=== PATIENT | male | born 1960 | race Caucasian/White ===

== ENCOUNTER 2018-01-24 15:31 | Inpatient (IN) | payer OTHER ==
[~2018-01-24] VITALS: Ht 188 cm; Wt 131.0 kg
[2018-01-30 06:02] VITALS: BP 112/76
[2018-01-30] MEDS ORDERED: LACTATED RINGERS 1,000 ML IV SCH (06:02)
[2018-01-30] MEDS ORDERED: GABA300C10 PO (06:37)
[2018-01-30] MEDS ORDERED: AMLO1CAP10 PO (06:37)
[2018-01-30] MEDS ORDERED: NORT25CA PO (06:39)
[2018-01-30] MEDS ORDERED: BACITRACIN 50,000 UNIT ONE (06:46)
[2018-01-30] MEDS ORDERED: BUPIVACAINE/PF 0.5% ONE (06:46)
[2018-01-30] MEDS ORDERED: EPINEPHRINE 1 MG/ML, 1ML ONE (06:46)
[2018-01-30] MEDS ORDERED: FENTANYL PF 250 MCG/5ML ONE (07:00)
[2018-01-30] MEDS ORDERED: GABAPENTIN 300 MG CAPSULE PO ONE (07:00)
[2018-01-30] MEDS ORDERED: OXYcodone IR 5MG TABLET PO ONE (07:00)
[2018-01-30] MEDS ORDERED: ACETAMINOPHEN 500 MG TABLET PO ONE (07:00)
[2018-01-30] MEDS ORDERED: CEFAZOLIN 1,000 MG ONE (07:13)
[2018-01-30] MEDS ORDERED: PROPOFOL 10 MG/ML, 20ML ONE (07:13)
[2018-01-30] MEDS ORDERED: DEXAMETHASONE 4 MG/ML, 1ML ONE (07:13)
[2018-01-30] MEDS ORDERED: EPHEDRINE 50 MG/ML, 1ML ONE (07:13)
[2018-01-30] MEDS ORDERED: LACTATED RINGERS 1,000 ML ONE (07:13)
[2018-01-30] MEDS ORDERED: PHENYLEPHRINE 10 MG/ML ONE (07:13)
[2018-01-30] MEDS ORDERED: THROMBIN 5,000 UNIT VIAL TP ONE (07:28)
[2018-01-30] MEDS ORDERED: FENTANYL PF 100 MCG/2ML ONE (08:21)
[2018-01-30] MEDS ORDERED: LABETALOL 5MG/ML, 20ML IV PRN ×2 (08:30→12:30)
[2018-01-30] MEDS ORDERED: OXYcodone 5 MG/5 ML ORAL.SOL UDC PO PRN (08:30)
[2018-01-30] MEDS ORDERED: ONDANSETRON 2MG/ML, 2ML IV PRN ×2 (08:30→12:30)
[2018-01-30] MEDS ORDERED: DIAZEPAM 5 MG/ML, 2ML IVPush PRN (08:30)
[2018-01-30] MEDS ORDERED: HYDROmorphone 2 MG/ML, 1ML IV PRN (08:30)
[2018-01-30] MEDS ORDERED: ALBUTEROL SULFATE 2.5 MG/3 ML NPPB PRN (08:30)
[2018-01-30] MEDS ORDERED: FENTANYL PF 100 MCG/2ML IV PRN (08:30)
[2018-01-30] MEDS ORDERED: hydrALAzine 20 MG/ML, 1ML IV PRN (08:30)
[2018-01-30] MEDS: INSULIN REGULAR 100 UNITS/ML, 3ML VIAL SQ-INSULIN SCH ×3 (11:00→21:00)
[2018-01-30 11:10] VITALS: BP 113/63
[2018-01-30] MEDS ORDERED: MORPHINE SULFATE 4 MG/ML, 1ML ONE (11:39)
[2018-01-30] MEDS ORDERED: ONDANSETRON 2MG/ML, 2ML ONE (11:40)
[2018-01-30] MEDS ORDERED: DIAZEPAM 5 MG TABLET PO PRN (12:30)
[2018-01-30] MEDS ORDERED: CYCLOBENZAPRINE 10 MG TABLET PO PRN (12:30)
[2018-01-30] MEDS ORDERED: PROMETHAZINE 25 MG/ML, 1ML IM PRN (12:30)
[2018-01-30] MEDS ORDERED: morphine SULFATE 10 MG/ML, 1ML IV PRN (12:30)
[2018-01-30] MEDS ORDERED: DIPHENHYDRAMINE 50 MG/ML, 1ML IM PRN (12:30)
[2018-01-30] MEDS ORDERED: DIAZEPAM 5 MG/ML, 2ML IV PRN (12:30)
[2018-01-30] MEDS ORDERED: HYDROcodone/APAP 5/325 TABLET PO PRN (12:30)
[2018-01-30] MEDS ORDERED: DIPHENHYDRAMINE 50 MG CAPSULE PO PRN (12:30)
[2018-01-30] MEDS ORDERED: MAGNESIUM HYDROXIDE 8%, 30ML UDC PO PRN (12:30)
[2018-01-30] MEDS ORDERED: BISACODYL 10 MG SUPP PR PRN (12:30)
[2018-01-30] MEDS: NS + 20MEQ KCL 1,000 ML IV SCH ×2 (13:37→23:18)
[2018-01-30] MEDS: OXYcodone/APAP 5/325MG TABLET PO PRN ×3 (13:45→21:56)
[2018-01-30] MEDS ORDERED: DULAGLUTIDE SQ SCH (14:00)
[2018-01-30] MEDS ORDERED: TRULICITY SQ SCH (14:00)
[2018-01-30 14:01] VITALS: BP 117/69
[2018-01-30] MEDS: CEFAZOLIN PMX 1GM/50ML 50 ML IVPB SCH ×2 (15:18→23:01)
[2018-01-30] MEDS ORDERED: INSULIN REGULAR 100 UNITS/ML, 3ML VIAL SQ-INSULIN SCH (16:00)
[2018-01-30] MEDS ORDERED: metFORMIN 500 MG TABLET PO SCH (16:30)
[2018-01-30] MEDS: NORTRIPTYLINE 25 MG CAPSULE PO SCH (18:06)
[2018-01-30 19:30] VITALS: BP 118/76
[2018-01-30] MEDS ORDERED: BENAZEPRIL 20 MG TABLET PO SCH (21:00)
[2018-01-30] MEDS ORDERED: AMLODIPINE 5 MG TABLET PO SCH (21:00)
[2018-01-30] MEDS: GABAPENTIN 300 MG CAPSULE PO SCH (21:21)
[2018-01-31 00:35] VITALS: BP 117/77
[2018-01-31] MEDS: OXYcodone/APAP 5/325MG TABLET PO PRN ×4 (01:58→14:00)
[2018-01-31 03:52] VITALS: BP 113/75
[2018-01-31] MEDS: NORTRIPTYLINE 25 MG CAPSULE PO SCH (06:06)
[2018-01-31] MEDS: INSULIN REGULAR 100 UNITS/ML, 3ML VIAL SQ-INSULIN SCH ×2 (06:08→11:00)
[2018-01-31] MEDS ORDERED: GLIMEPIRIDE 1 MG TABLET PO SCH ×2 (07:30→08:00)
[2018-01-31 07:55] VITALS: BP 134/83
[2018-01-31] MEDS ORDERED: metFORMIN 500 MG TABLET PO SCH (08:00)
[2018-01-31] MEDS: GABAPENTIN 300 MG CAPSULE PO SCH (08:10)
[2018-01-31] MEDS ORDERED: OXYC-307 PO (08:55)
[2018-01-31] MEDS ORDERED: BENAZEPRIL 20 MG TABLET PO SCH (09:00)
[2018-01-31] MEDS ORDERED: SENNA/DOCUSATE TABLET PO SCH (09:00)
[2018-01-31] MEDS ORDERED: NORTRIPTYLINE 25 MG CAPSULE PO SCH (09:00)
[2018-01-31] MEDS ORDERED: AMLODIPINE 5 MG TABLET PO SCH (09:00)
[2018-01-31 13:11] VITALS: BP 142/85
== END 2018-01-31 14:55 | disposition home or self-care (01) | DRG 473 ==
LOC: UNDOADMIN 15:31 → ORIP 15:31 → 4NOR 01-30 11:09 → DCLOUNGE 01-31 14:49
PROVIDERS: ADMIT Neurological Surgery; ATTEND Neurological Surgery
PROC: 4A11X4G Monitoring of Peripheral Nervous Electrical Activity, Intraoperative, External Approach (ICD-10-PCS; 2018-01-30)
PROC: 0RG20A0 Fusion of 2 or more Cervical Vertebral Joints with Interbody Fusion Device, Anterior Approach, Anterior Column, Open Approach (ICD-10-PCS; principal; 2018-01-30 07:00)
DX: M47.12 Other spondylosis with myelopathy, cervical region (principal); I10 Essential (primary) hypertension; E11.9 Type 2 diabetes mellitus without complications; M54.12 Radiculopathy, cervical region
CPT/HCPCS: 36415; 72040; 82962; 86850; 86900; 95938; 95941; C1713; G0378; J0171; J0690; J1100; J1815; J2405; J2704; J3010; J3480; J3490; J2270; J2370; J7120

== ENCOUNTER → 2018-01-24 | Outpatient (CLI) | payer MEDICAID, OTHER ==
[~2018-01-24] MED LIST: DULA0.75 SQ-INSULIN; FOLI-17 PO; GLIM2TAB2 PO; HYDR-3343 PO; MAGN400T26 PO; METF500T9 PO; METO-99 PO; MULT-6 PO; THIA100T10 PO
[2018-01-24 15:19] LABS: CULTURE INDICATED? YES; MICROSCOPIC INDICATED
[2018-01-24 15:26] LABS: BASOPHILS # (AUTO) 0.03 x10^3/uL (0-0.1); BASOPHILS % (AUTO) 0 % (0-1); EOSINOPHILS # (AUTO) 0.19 x10^3/uL (0-0.4); EOSINOPHILS % (AUTO) 3 % (1-7); LYMPHOCYTES # (AUTO) 2.96 x10^3/uL (1-3.4); LYMPHOCYTES % (AUTO) 45 % (22-44); MD NO; MEAN CORPUSCULAR HEMOGLOBIN 25.6 pg (27.5-34.5); MEAN CORPUSCULAR HGB CONC 32.9 g/dL (33.2-36.2); MEAN CORPUSCULAR VOLUME 77.8 fL (81-97); MEAN PLATELET VOLUME 7.4 fL (7.4-10.4); MONOCYTES # (AUTO) 1.06 x10^3/uL (0.2-0.8); MONOCYTES % (AUTO) 16 % (2-9); NEUTROPHILS # (AUTO) 2.36 x10^3/uL (1.8-6.8); NEUTROPHILS % (AUTO) 36 % (42-75); PLATELET COUNT 297 x10^3/uL (130-400); RED BLOOD COUNT 5.49 x10^6/uL (4.38-5.82); RED CELL DISTRIBUTION WIDTH 14.9 % (9.4-14.8)
[2018-01-24 15:34] LABS: INTERNATIONAL NORMALIZED RATIO 1.03 (0.93-1.1); PROTHROMBIN TIME 10.7 Seconds (9.6-11.5)
[2018-01-24 15:35] LABS: ALANINE AMINOTRANSFERASE 64 U/L (12-78); ALBUMIN 3.8 g/dL (3.4-5.0); ANION GAP 12 mmol/L (5-15); CHLORIDE 102 mmol/L (98-107); CREATININE 1.24 mg/dL (0.7-1.3)
[2018-01-24 15:37] LABS: ALKALINE PHOSPHATASE 71 U/L (45-117); BILIRUBIN,TOTAL 0.3 mg/dL (0.2-1.0); TOTAL PROTEIN 7.3 g/dL (6.4-8.2)
== END | disposition home or self-care (01) ==
LOC: STAR 14:19
PROVIDERS: ATTEND Neurological Surgery
DX: Z01.818 Encounter for other preprocedural examination (principal); M54.12 Radiculopathy, cervical region; R00.0 Tachycardia, unspecified
CPT/HCPCS: 36415; 80053; 81001; 85025; 85610; 85730; 87086; 93005

== ENCOUNTER 2018-02-15 15:55 | Inpatient (IN) | payer OTHER ==
[~2018-02-15] VITALS: Ht 188 cm; Wt 122.9 kg
[~2018-02-15 15:55] MED LIST changes: +AMLO1CAP10 PO; +GABA300C10 PO; +NORT25CA78 PO; +OXYC-307 PO
[2018-02-15 16:37] LABS: BASOPHILS # (AUTO) 0.04 x10^3/uL (0-0.1); BASOPHILS % (AUTO) 1 % (0-1); EOSINOPHILS # (AUTO) 0.25 x10^3/uL (0-0.4); EOSINOPHILS % (AUTO) 3 % (1-7); LYMPHOCYTES # (AUTO) 2.46 x10^3/uL (1-3.4); LYMPHOCYTES % (AUTO) 33 % (22-44); MD NO; MEAN CORPUSCULAR HEMOGLOBIN 25.5 pg (27.5-34.5); MEAN CORPUSCULAR HGB CONC 32.6 g/dL (33.2-36.2); MEAN CORPUSCULAR VOLUME 78.3 fL (81-97); MEAN PLATELET VOLUME 7.2 fL (7.4-10.4); MONOCYTES # (AUTO) 0.95 x10^3/uL (0.2-0.8); MONOCYTES % (AUTO) 13 % (2-9); NEUTROPHILS # (AUTO) 3.73 x10^3/uL (1.8-6.8); NEUTROPHILS % (AUTO) 50 % (42-75); PLATELET COUNT 389 x10^3/uL (130-400); RED BLOOD COUNT 5.77 x10^6/uL (4.38-5.82); RED CELL DISTRIBUTION WIDTH 14.1 % (9.4-14.8)
[2018-02-15 16:43] LABS: ANION GAP 10 mmol/L (5-15); CALCIUM 8.9 mg/dL (8.5-10.1); CHLORIDE 100 mmol/L (98-107); CREATININE 1.07 mg/dL (0.7-1.3)
[2018-02-15 16:44] LABS: ALBUMIN 3.9 g/dL (3.4-5.0)
[2018-02-15 16:47] LABS: TROPONIN I < 0.015 ng/mL (0.000-0.045)
[2018-02-15 17:02] LABS: T4 (THYROXINE) 8.4 mcg/dL (4.5-12.1)
[2018-02-15 17:11] LABS: THYROID STIMULATING HORMONE 2.54 mIU/L (0.358-3.740)
[2018-02-15] MEDS ORDERED: SODIUM CHLORIDE 0.9% 1,000 ML IV ONE ×2 (18:02→18:30)
[2018-02-15] MEDS ORDERED: SODIUM CHLORIDE FLUSH 10ML SYR IVF PRN (18:30)
[2018-02-15] MEDS ORDERED: SODIUM CHLORIDE 0.9% 1,000ML IVBOLUS ONE (18:30)
[2018-02-15] MEDS ORDERED: SODIUM CHLORIDE FLUSH 10ML SYR IVF ONE (19:00)
[2018-02-15] MEDS ORDERED: ACETAMINOPHEN 325 MG TABLET PO PRN (19:30)
[2018-02-15] MEDS ORDERED: ONDANSETRON ODT 4 MG PO PRN (19:30)
[2018-02-15] MEDS ORDERED: POLYETHYLENE GLYCOL 17 GM PACKET PO PRN (19:30)
[2018-02-15] MEDS ORDERED: BISACODYL 10 MG SUPP PR PRN (19:30)
[2018-02-15 19:46] LABS: FREE T4 (FREE THYROXINE) 1.04 ng/dL (0.76-1.46)
[2018-02-15 20:12] LABS: HEMOGLOBIN A1C 9.2 % (4.2-6.3)
[2018-02-15] MEDS: SODIUM CHLORIDE 0.9% 1,000 ML IV SCH (22:06)
[2018-02-15] MEDS: OXYcodone/APAP 10/325MG TABLET PO PRN (22:07)
[2018-02-15] MEDS: GABAPENTIN 300 MG CAPSULE PO SCH (22:07)
[2018-02-15 22:09] VITALS: BP 123/81
[2018-02-16] VITALS (12 sets, daily range): BP systolic 74–149; BP diastolic 58–89
[2018-02-16] MEDS: OXYcodone/APAP 10/325MG TABLET PO PRN ×4 (02:11→20:43)
[2018-02-16 05:16] LABS: BASOPHILS # (AUTO) 0.04 x10^3/uL (0-0.1); BASOPHILS % (AUTO) 1 % (0-1); EOSINOPHILS # (AUTO) 0.36 x10^3/uL (0-0.4); EOSINOPHILS % (AUTO) 5 % (1-7); LYMPHOCYTES # (AUTO) 2.72 x10^3/uL (1-3.4); LYMPHOCYTES % (AUTO) 41 % (22-44); MD NO; MEAN CORPUSCULAR HEMOGLOBIN 26.1 pg (27.5-34.5); MEAN CORPUSCULAR HGB CONC 33.1 g/dL (33.2-36.2); MEAN PLATELET VOLUME 7.5 fL (7.4-10.4); MONOCYTES # (AUTO) 0.95 x10^3/uL (0.2-0.8); MONOCYTES % (AUTO) 14 % (2-9); NEUTROPHILS # (AUTO) 2.59 x10^3/uL (1.8-6.8); NEUTROPHILS % (AUTO) 39 % (42-75); PLATELET COUNT 333 x10^3/uL (130-400); RED BLOOD COUNT 5.19 x10^6/uL (4.38-5.82); RED CELL DISTRIBUTION WIDTH 14.8 % (9.4-14.8)
[2018-02-16 05:28] LABS: CHLORIDE 106 mmol/L (98-107)
[2018-02-16 05:37] LABS: ALANINE AMINOTRANSFERASE 55 U/L (12-78); ALBUMIN 3.4 g/dL (3.4-5.0); ALKALINE PHOSPHATASE 78 U/L (45-117); ANION GAP 7 mmol/L (5-15); BILIRUBIN,TOTAL 0.4 mg/dL (0.2-1.0); CALCIUM 8.7 mg/dL (8.5-10.1); CREATININE 0.85 mg/dL (0.7-1.3); TOTAL PROTEIN 6.9 g/dL (6.4-8.2); TROPONIN I < 0.015 ng/mL (0.000-0.045)
[2018-02-16] MEDS: SODIUM CHLORIDE 0.9% 1,000 ML IV SCH ×2 (08:13→20:43)
[2018-02-16] MEDS: SENNA/DOCUSATE TABLET PO SCH (08:48)
[2018-02-16] MEDS: GLIMEPIRIDE 1 MG TABLET PO SCH (08:49)
[2018-02-16] MEDS: GABAPENTIN 300 MG CAPSULE PO SCH ×2 (08:50→20:43)
[2018-02-16] MEDS: metFORMIN XR 500 MG TAB.ER.24H PO SCH (08:50)
[2018-02-16] MEDS: NORTRIPTYLINE 25 MG CAPSULE PO SCH (08:51)
[2018-02-16 15:08] LABS: MICROSCOPIC NOT IND
[2018-02-16 15:11] LABS: CULTURE INDICATED? NO
[2018-02-17] VITALS (8 sets, daily range): BP systolic 96–131; BP diastolic 67–84
[2018-02-17] MEDS: OXYcodone/APAP 10/325MG TABLET PO PRN ×2 (01:15→09:26)
[2018-02-17] MEDS: NORTRIPTYLINE 25 MG CAPSULE PO SCH (09:25)
[2018-02-17] MEDS: GABAPENTIN 300 MG CAPSULE PO SCH (09:25)
[2018-02-17] MEDS: SENNA/DOCUSATE TABLET PO SCH (09:25)
[2018-02-17] MEDS: metFORMIN XR 500 MG TAB.ER.24H PO SCH (09:25)
[2018-02-17] MEDS: GLIMEPIRIDE 1 MG TABLET PO SCH (09:25)
[2018-02-17] MEDS: SODIUM CHLORIDE 0.9% 1,000 ML IV SCH (09:26)
[2018-02-17] MEDS ORDERED: GABA300C10 PO (12:08)
[2018-02-17] MEDS ORDERED: METF500T9 PO (12:15)
[2018-02-17] MEDS ORDERED: GABAPENTIN 300 MG CAPSULE PO SCH (16:00)
== END 2018-02-17 14:42 | disposition home or self-care (01) | DRG 312 ==
LOC: ED 16:09 → EDIP 18:02 → 4EST 19:13
PROVIDERS: ADMIT Hospitalist; ATTEND Hospitalist
DX: I95.1 Orthostatic hypotension (principal); E87.1 Hypo-osmolality and hyponatremia; E11.65 Type 2 diabetes mellitus with hyperglycemia; I10 Essential (primary) hypertension; F10.20 Alcohol dependence, uncomplicated; Y90.9 Presence of alcohol in blood, level not specified; W18.39XA Other fall on same level, initial encounter; R00.0 Tachycardia, unspecified; J32.0 Chronic maxillary sinusitis; Z98.1 Arthrodesis status; Y93.89 Activity, other specified; Y92.098 Other place in other non-institutional residence as the place of occurrence of the external cause; Y99.8 Other external cause status; Z79.899 Other long term (current) drug therapy; Z23 Encounter for immunization; Z79.84 Long term (current) use of oral hypoglycemic drugs
CPT/HCPCS: 36415; 70450; 71045; 80048; 80053; 81003; 82040; 82533; 82728; 82962; 83036; 83540; 83550; 83735; 84436; 84439; 84443; 84484; 85025; 87040; 90656; 93005; 93306; 93880; 99285; G0378; J7030